=== PATIENT | female | born 1955 | race Caucasian/White ===

== ENCOUNTER → 2017-03-11 | Day surgery (SDC) | payer OTHER ==
[~2017-03-11] VITALS: Ht 154.9 cm; Wt 44.7 kg
[~2017-03-11] MED LIST: CITRACAL+D(315M1 TAB PO; DELTASONE10 MG PO; FLONASE 50 MCG/16 GM NOSE; IMODIUM2 MG PO; LEVOTHROID (S112 MCG PO; MUCUS RELIEF C400 MG PO; PAMELOR10 MG PO; PRESERVISION A1 EACH PO; PROAIR HFA8.5 GM INH; TYLENOL EXTRA500 MG PO; VISION VITAMIN1 EAC1 PO; VITAMIN D2000 UNI1 PO; ZYRTEC10 MG PO; [UNRECOGNIZED DRUG - OTHER] PO
== END | disposition disaster alternative care site (69) ==
LOC: GPOC 02-26 09:00 → GEND 07:54 → GPOC 09:00
PROC: 0DJD8ZZ Inspection of Lower Intestinal Tract, Via Natural or Artificial Opening Endoscopic (ICD-10-PCS; principal; 2017-03-11)
DX: Z12.11 Encounter for screening for malignant neoplasm of colon (principal); K57.30 Diverticulosis of large intestine without perforation or abscess without bleeding; K64.8 Other hemorrhoids; Z86.010 Personal history of colon polyps; E89.0 Postprocedural hypothyroidism; Z88.2 Allergy status to sulfonamides; Z79.51 Long term (current) use of inhaled steroids; Z79.899 Other long term (current) drug therapy; Z98.890 Other specified postprocedural states; Z87.891 Personal history of nicotine dependence
CPT/HCPCS: J2001; J7030